=== PATIENT | male | born 1970 | race Caucasian/White ===

== ENCOUNTER → 2016-07-21 09:28 | Outpatient (CLI) | payer OTHER | END | disposition home or self-care (01) | LOC: D.RT 09:28 | DX: Z02.71 Encounter for disability determination (principal) ==

== ENCOUNTER 2017-11-27 12:50 | Emergency (ER) | payer MEDICAID ==
[~2017-11-27] VITALS: Ht 175.3 cm; Wt 104.5 kg
[2017-11-27 12:56] VITALS: Ht 175.3 cm; Wt 104.5 kg
[2017-11-27] MEDS ORDERED: COMBIVENT RESPIM4 GM INH (12:58)
[2017-11-27] MEDS ORDERED: BREO ELLIPTA 11 EACH INH (12:58)
[2017-11-27] MEDS ORDERED: SPIRIVA18 MCG INH (12:58)
[2017-11-27] MEDS ORDERED: PROSTATE MEDICATION (12:59)
[2017-11-27] MEDS ORDERED: COZAAR50 MG PO (12:59)
[2017-11-27] MEDS ORDERED: IBUPROFEN800 MG PO (13:48)
[2017-11-27] MEDS ORDERED: CYCLOBENZAPRINE10 MG PO (13:48)
[2017-11-27] MEDS ORDERED: ACETAMINOPHEN500 M1 PO (13:48)
[2017-11-27 14:27] VITALS: BP 126/79
== END 2017-11-27 14:22 | disposition home or self-care (01) ==
LOC: D.ER 12:50
DX: M25.562 Pain in left knee (principal); M70.52 Other bursitis of knee, left knee; Y93.89 Activity, other specified; M25.462 Effusion, left knee; I10 Essential (primary) hypertension

== ENCOUNTER → 2017-12-07 08:02 | Outpatient (CLI) | payer MEDICAID ==
[2017-11-27 12:56] VITALS: BMI 34.0
[~2017-12-07 08:02] MED LIST: ACETAMINOPHEN500 M1 PO; BREO ELLIPTA 11 EACH INH; COMBIVENT RESPIM4 GM INH; COZAAR50 MG PO; CYCLOBENZAPRINE10 MG PO; IBUPROFEN800 MG PO; PROSTATE MEDICATION; SPIRIVA18 MCG INH
== END | disposition home or self-care (01) ==
LOC: D.MRI 08:00
DX: M25.562 Pain in left knee (principal)

== ENCOUNTER → 2018-01-25 14:38 | Day surgery (SDC) | payer MEDICAID ==
[2017-11-27 12:56] VITALS: BMI 34.0
[~2018-01-25 14:38] MED LIST changes: +ALBUTEROL SULF8.5 GM INH; +ALENDRONATE SOD70 MG PO; +CALCIUM 500 +1 EAC3 PO; +FLOMAX0.4 MG PO
[2018-01-25 15:27] LABS: BASOPHILS 0.1 % (0-2); EOSINOPHILS 2.3 % (0-7); HEMATOCRIT 42.1 % (42.0-54.0); IMMATURE GRANULOCYTES 0.4 % (0-5); LYMPHOCYTES 29.5 % (15-50); MCH 30.5 pg (26.0-34.0); MCHC 33.3 g/dL (31.0-37.0); MCV 91.7 fL (80.0-100.0); MEAN PLATELET VOLUME 10.7 fL (7.4-10.4); NEUTROPHILS 59.7 % (40-80); PLATELET COUNT 226 10x3/uL (130-400); RBC 4.59 10x6/uL (4.20-6.10); RDW 14.3 % (11.5-14.5); WBC 7.7 10x3/uL (4.8-10.8)
[2018-01-25 15:37] LABS: CALC OSMOLALITY 275 mosm/kg (275-300); CALCIUM 8.5 mg/dL (8.5-10.1); CARBON DIOXIDE 31.4 mmol/L (21.0-32.0); CHLORIDE - SERUM 102 mmol/L (98-107); CREATININE - SERUM 0.7 mg/dL (0.6-1.3); GLUCOSE 92 mg/dL (74-106); POTASSIUM - SERUM 4.6 mmol/L (3.5-5.1); SODIUM 139 mmol/L (136-145); UREA NITROGEN 8 mg/dL (7-18); eGFR NON AFRICAN AMERICAN > 90 mL/min (90-120)
== END | disposition home or self-care (01) ==
LOC: D.OPS 14:38 → D.PAN 01-28 08:15 → D.OPS 01-28 08:30
PROVIDERS: Orthopaedic Surgery
DX: Z53.9 Procedure and treatment not carried out, unspecified reason (principal)